=== PATIENT | female | born 1955 | race Caucasian/White ===

== ENCOUNTER → 2017-10-23 | Outpatient (CLI) | payer OTHER ==
--- NOTE | 2017-10-23 15:33 | Diagnostic Imaging Report ---
PROCEDURE: X-RAY CHEST, TWO VIEWS COMPARISON: None. INDICATIONS: CHEST PAIN FINDINGS: LUNGS: Well-inflated and clear. Pulmonary vasculature is normal. PLEURA: No effusions or pneumothorax. HEART \T\ MEDIASTINUM: Cardiomediastinal silhouette is normal. BONES \T\ SOFT TISSUES: No focal osseous lesions. Soft tissues are unremarkable. CONCLUSION: No acute thoracic abnormality. Dictated by: Fidelina Peralta M.D. on 10/23/2017 at 15:35 Electronically approved by: Fidelina Peralta M.D. on 10/23/2017 at 15:35
== END ==
LOC: RAD 14:49
DX: R07.9 Chest pain, unspecified (principal)
CPT/HCPCS: 71046

== ENCOUNTER → 2018-02-26 | Outpatient (CLI) | payer OTHER ==
--- NOTE | 2018-02-26 13:37 | Diagnostic Imaging Report ---
Radiographs of the right heel - 2 views HISTORY: Pain COMPARISON: None available. FINDINGS: Bones: No acute displaced fracture. Osseous alignment is within normal limits. Joints: Small inferior calcaneal bone spur. Soft tissues: The soft tissues appear unremarkable. IMPRESSION: Small inferior calcaneal bone spur. Signed by: Dr. Kaiden Holm M.D. on 02/26/2018 1:33 PM
== END ==
LOC: RAD 12:13
DX: M79.671 Pain in right foot (principal)